=== PATIENT | male | born 1950 | race Caucasian/White ===

== ENCOUNTER 2017-02-22 16:35 | Emergency (ER) | payer MEDICARE ==
[~2017-02-22 16:35] MED LIST: OMEPRAZOLE20 MG PO
[2017-02-22 18:43] LABS: HEMOGLOBIN 14.1 gm/dl (14.0-17.5); RED BLOOD COUNT 4.63 M/UL (4.20-5.50); WHITE BLOOD COUNT 8.2 K/UL (4.5-11.0)
[2017-02-22 19:10] LABS: BUN/CREATININE RATIO 14 (0-10)
== END 2017-02-22 20:02 | disposition home or self-care (01) ==
LOC: ER1 16:35
PROVIDERS: Physician Assistant Medical
DX: J44.1 Chronic obstructive pulmonary disease with (acute) exacerbation (principal); M19.90 Unspecified osteoarthritis, unspecified site; Z79.1 Long term (current) use of non-steroidal anti-inflammatories (NSAID)
CPT/HCPCS: 36415; 71020; 80053; 83880; 85025; 93005; 99283

== ENCOUNTER 2020-11-13 17:28 | Emergency (ER) | payer MEDICARE, OTHER ==
[~2020-11-13 17:28] MED LIST changes: +ANTIVERT 25MG T25 MG PO; +AUGMENTIN 875-1 EACH PO; +BENTYL 20MG TAB20 MG PO; +CIPRO500 MG PO; +FLAGYL500 MG PO; +HYDROCODON-ACE1 EAC4 PO; +MEDROL4 MG PO; +MUCINEX600 MG PO; +NAPROSYN500 MG PO; +NORCO 5-325 TA1 EACH PO; +NORFLEX 100 MG100 MG PO; +PROPRANOLOL HCL10 MG PO; +VENTOLIN/PROVE0.5 ML INH; +ZOFRAN ODT 4 MG4 MG SL
[2020-11-13] MEDS ORDERED: CYCLOBENZAPRINE10 MG PO (20:25)
[2020-11-13] MEDS ORDERED: IBUPROFEN800 MG PO (20:25)
== END 2020-11-13 20:35 | disposition home or self-care (01) ==
LOC: ER1 17:28
DX: M75.101 Unspecified rotator cuff tear or rupture of right shoulder, not specified as traumatic (principal); J44.9 Chronic obstructive pulmonary disease, unspecified
CPT/HCPCS: 73200; 96372; 99283; J1885

== ENCOUNTER → 2021-09-15 | Outpatient (CLI) | payer MEDICARE ==
[~2021-09-15] MED LIST changes: +CYCLOBENZAPRINE10 MG PO; +IBUPROFEN800 MG PO
== END ==
LOC: RAD 13:01
DX: M54.50 Low back pain, unspecified (principal); M47.816 Spondylosis without myelopathy or radiculopathy, lumbar region
CPT/HCPCS: 72110

== ENCOUNTER → 2021-12-16 | Outpatient (CLI) | payer MEDICARE, OTHER ==
[~2021-12-16] MED LIST changes: +ASPIRIN EC81 MG PO; +ATORVASTATIN CA20 MG PO; +IBU800 MG PO
== END ==
LOC: RAD 11:26
DX: U07.1 COVID-19 (principal)
CPT/HCPCS: 71046

== ENCOUNTER 2022-01-20 09:22 | Emergency (ER) | payer MEDICARE ==
[2022-01-20 10:24] LABS: RED BLOOD COUNT 4.67 M/UL (4.20-5.50); WHITE BLOOD COUNT 8.9 K/UL (4.5-11.0)
[2022-01-20 10:49] LABS: BUN/CREATININE RATIO 19 (0-10)
== END 2022-01-20 13:32 | disposition home or self-care (01) ==
LOC: ER1 09:22
PROVIDERS: Physician Assistant
DX: J44.9 Chronic obstructive pulmonary disease, unspecified (principal); F17.200 Nicotine dependence, unspecified, uncomplicated
CPT/HCPCS: 71045; 80053; 82550; 82553; 84484; 85025; 85379; 93005; 99285; Q9967